=== PATIENT | female | born 1960 | race Caucasian/White ===

== ENCOUNTER 2018-09-11 16:35 | Observation (INO) | payer BC ==
--- NOTE | 2018-09-11 16:39 | Emergency Department Record ---
History of Present Illness - General Chief complaint: Nausea, Vomiting, Diarrhea Stated complaint: NAUSEA,VOMITING,DIZZY Time Seen by Provider: 09/11/18 16:38 Source: Patient, Family Mode of Arrival: Ambulatory Limitations: No limitations - History of Present Illness Initial comments: 57 yo female presents with nausea, vomiting, dizziness that started between 9:30pm and 10pm last night suddenly. She reports the onset was with standing up. The symptoms have been fairly persistent since then. The symptoms are better if still and worse with turning of the head. No headache. No vision changes or vision loss. No speech changes. No coordination changes of the extremities. She had a few episodes of diarrhea this morning. She does not have a PCP. She has not seen a PCP in 20+ years. She states she was told then she has HTN but she has never been treated. MD complaint: Diarrhea, Nausea, Vomiting -: Week(s) Description of Vomiting: Watery Description of Diarrhea: Water Location: Other (No pain) Quality: Other (spinning) Improves with: Other (remaining still) Worsens with: Movement, Vomiting Context: Other Associated Symptoms: Loss of appetite, Nausea/vomiting, Other (Diarrhea) - Related Data Home Medications Medication Instructions Recorded Confirmed Last Taken No Home Med [NO HOME MEDS] 09/11/18 09/11/18 Unknown Allergies Allergy/AdvReac Type Severity Reaction Status Date / Time Penicillins Allergy swelling Verified 09/11/18 16:36 Review of Systems Constitutional: Denies: Chills, Fever, Malaise, Weakness Eyes: Denies: Eye discharge, Eye pain, Photophobia, Vision change ENT: Denies: Congestion, Ear pain, Throat pain Respiratory: Denies: Cough, Dyspnea Cardiovascular: Denies: Chest pain, Dyspnea on exertion, Edema, Palpitations, Syncope Endocrine: Denies: Fatigue, Polydipsia, Polyuria Gastrointestinal: Reports: Diarrhea, Nausea, Vomiting. Denies: Abdominal pain, Constipation, Hematemesis, Hematochezia Genitourinary: Denies: Dysuria, Urgency Musculoskeletal: Denies: Arthralgia, Back pain, Myalgia Skin: Denies: Bruising, Change in color, Rash Neurological: Reports: Vertigo. Denies: Confusion, Headache, Numbness, Seizure, Tingling, Tremors, Weakness Psychiatric: Denies: Anxiety Hematological/Lymphatic: Denies: Easy bleeding, Easy bruising Past Medical History - SOCIAL HISTORY Smoking Status: Current every day smoker Alcohol Use: None Drug Use: None - RESPIRATORY Hx Respiratory Disorders: No - CARDIOVASCULAR Hx Cardio Disorders: No - NEURO Hx Neuro Disorders: No - GI Hx GI Disorders: No - Hx Genitourinary Disorders: No - ENDOCRINE Hx Endocrine Disorders: No - MUSCULOSKELETAL Hx Musculoskeletal Disorders: No - PSYCH Hx Psych Problems: No - HEMATOLOGY/ONCOLOGY Hx Hematology/Oncology Disorders: No Family Medical History Any Significant Family History?: Yes Family Hx Comment (NOT TO BE USED IN PLACE OF ITEMS BELOW): CHF- Mother Hx Diabetes: Brother/Sister, Grandparents Hx Heart Disease: Mother Physical Exam - General General Appearance: Alert, Oriented x3, Cooperative, No acute distress Limitations: No limitations - Head Head exam: Atraumatic, Normal inspection - Eye Eye exam: Normal appearance, PERRL, EOMI. negative: Conjunctival injection, Nystagmus, Periorbital swelling, Scleral icterus - ENT ENT exam: Normal exam, Mucous membranes moist Ear exam: Normal external inspection Nasal Exam: Normal inspection Mouth exam: Normal external inspection - Neck Neck exam: Normal inspection - Respiratory Respiratory exam: Normal lung sounds bilaterally. negative: Respiratory di stress - Cardiovascular Cardiovascular Exam: Regular rate, Normal rhythm, Normal heart sounds Peripheral Pulses: 2+: Radial (R), Radial (L) - GI/Abdominal GI/Abdominal exam: Soft. negative: Tenderness - Rectal Rectal exam: Deferred - exam: Deferred - Extremities Extremities exam: Normal inspection. negative: Tenderness - Back Back exam: Denies: CVA tenderness (R), CVA tenderness (L) - Neurological Neurological exam: Alert, CN II-XII intact, Oriented X3, Other (Normal FTN, no PND, clear speech, no dysarthia, no dysmetria, no ataxia, normal ANDREW). negative: Altered, Motor sensory deficit - Psychiatric Psychiatric exam: Normal affect, Normal mood. negative: Agitated, Anxious - Skin Skin exam: Dry, Intact, Normal color, Warm. negative: Cyanosis, Diaphoretic, Erythema, Mottled Course - Reevaluation(s) Reevaluation #1: EKG #1: 16:55 Rate: 58 Rhythm: sinus [place]: L Intervals: Normal ST segments: poor R wave progression Prior: None 09/11/18 17:06 09/11/18 17:07 The CBC was reviewed. No acute process. 09/11/18 17:26 No acute changes on the BMP 09/11/18 17:27 Repeat BP still > 200 Hydralazine ordered 09/11/18 17:39 The HCT was negative for acute process 09/11/18 17:39 Troponin is normal 09/11/18 18:51 Mild improvement but still room spinning if she turns her head No cerebellar symptoms on examination. Most consistent with vertigo, abrupt onset, fatigues if still, worse with turning, no other ataxia, coordination, speech, vision or other changes. Given she does not have a PCP, untreated HTN, and still symptoms I discussed the case with Valeria Galeano [employer] for admission, starting BP medication, neuro checks, symptomatic treatment. Medical Decision Making - Lab Data Result diagrams: 09/11/18 16:40 09/11/18 16:40 Disposition Disposition: Admit Clinical Impression: Dizziness, Vertigo, Vomiting and diarrhea Disposition: Still a Patient at [facility] Decision to Admit: Admit from ER Decision to Admit Date: 09/11/18 Decision to Admit Time: 18:54 Condition: (2) Stable Forms: Patient Portal Access Time of Disposition: 18:54 Quality - Quality Measures Quality Measures: N/A - Blood Pressure Screening Does Patient Have Any of the Following: Active Dx of HTN Blood Pressure Classification: Hypertensive Reading Systolic Measurement: 216 Diastolic Measurement: 116 Screening for High Blood Pressure: Patient Exclusion, Hx of HTN [[id number]]
[2018-09-11] MEDS ORDERED: MECLIZINE 25 MG TABLET PO ONE (16:48)
[2018-09-11] MEDS ORDERED: ONDANSETRON HCL IV 4 MG/2 ML VIAL IVP ONE ×2 (16:48→20:16)
[2018-09-11 16:59] LABS: ABSOLUTE NEUTROPHIL COUNT 6.58; BASO % 0.3 % (0-6); EOS % 0.3 % (0-6); GRAN % 70.6 % (47-80); HEMATOCRIT 51.5 % (35.0-47.0); HEMOGLOBIN 17.4 gm/dl (11.6-16.0); LYMPH % 22.8 % (16-45); MEAN CELL VOLUME 86.6 fl (81-97); MEAN CORPUSCULAR HEMOGLOBIN 29.2 pg (27-33); MEAN CORPUSCULAR HGB CONC 33.8 g/dl (32-36); PLATELET COUNT 276 K/uL (130-400); RED BLOOD COUNT 5.95 M/uL (3.80-5.40); RED CELL DISTRIBUTION WIDTH 14.2 % (11.5-14.5); WHITE BLOOD COUNT W/O DIFF 9.3 K/uL (4.2-12.2)
[2018-09-11 17:12] LABS: BLOOD UREA NITROGEN 13 mg/dL (6-20); CREATININE 0.8 mg/dL (0.5-0.9); EST GLOMERULAR FILTRATION RATE > 60 mL/min; LIPASE 11 U/L (13-60); TOTAL PROTEIN 8.1 g/dL (6.6-8.7)
[2018-09-11 17:14] LABS: GLUCOSE,RANDOM 118 mg/dL (74-109)
[2018-09-11 17:17] LABS: ALB/GLOB RATIO 1.5 (1.1-1.8); ALBUMIN 4.8 g/dL (4.0-5.0); ALKALINE PHOSPHATASE 86 U/L (35-104); ALT/SGPT 11 U/L (<33); AST/SGOT 13 U/L (10.0-35.0)
[2018-09-11] MEDS ORDERED: HYDRALAZINE 20MG/ML VIAL IV ONE (17:27)
[2018-09-11] MEDS ORDERED: LISINOPRIL 10 MG TABLET PO ONE (18:54)
[2018-09-11 19:23] LABS: URINE APPEARANCE CLEAR; URINE BILIRUBIN NEGATIVE (NEGATIVE); URINE BLOOD NEGATIVE (NEGATIVE); URINE COLOR YELLOW; URINE GLUCOSE (UA) NEGATIVE (NEGATIVE); URINE KETONE 15 mg/dL (NEGATIVE); URINE LEUKOCYTE ESTERASE TRACE (NEGATIVE); URINE NITRITE POSITIVE (NEGATIVE); URINE PROTEIN NEGATIVE (NEGATIVE); URINE UROBILINOGEN 0.2 E.U./dL (0.20 - 1.00)
[2018-09-11 19:31] LABS: URINE BACTERIA 4+; URINE EPITHELIAL CELLS 0 - 2 (FEW); URINE RBC NONE SEEN (NONE SEEN); URINE WBC 0 - 2 (0-2/hpf)
[2018-09-11] MEDS ORDERED: ACETAMINOPHEN 325 MG TAB PO PRN (20:16)
[2018-09-11] MEDS: 0.9 % SODIUM CHLORIDE 1000ML 1,000 ML IV PRN (20:29)
[2018-09-11] MEDS: HYDROXYZINE PAMOATE 25 MG CAPSULE PO SCH (21:54)
[2018-09-11] MEDS: NITROFURANTOIN MONO 100 MG CAPSULE PO SCH (21:54)
[2018-09-11] MEDS ORDERED: CALCIUM CARBONATE 500 MG TAB.CHEW PO PRN (22:26)
[2018-09-11] MEDS ORDERED: ONDANSETRON 4 MG ODT TABLET SL PRN (22:37)
[2018-09-12] MEDS: MECLIZINE 25 MG TABLET PO PRN ×3 (00:45→21:33)
[2018-09-12] MEDS: 0.9 % SODIUM CHLORIDE 1000ML 1,000 ML IV PRN (04:30)
[2018-09-12 06:20] LABS: ABSOLUTE NEUTROPHIL COUNT 4.83; BASO % 0.3 % (0-6); EOS % 1.1 % (0-6); GRAN % 60.3 % (47-80); HEMATOCRIT 44.3 % (35.0-47.0); HEMOGLOBIN 14.9 gm/dl (11.6-16.0); MEAN CELL VOLUME 88.4 fl (81-97); MEAN CORPUSCULAR HEMOGLOBIN 29.7 pg (27-33); MEAN CORPUSCULAR HGB CONC 33.6 g/dl (32-36); MEAN PLATELET VOLUME 10.6 fl (7.4-10.4); MONO % 10.3 % (0-9); PLATELET COUNT 207 K/uL (130-400); RED BLOOD COUNT 5.01 M/uL (3.80-5.40); RED CELL DISTRIBUTION WIDTH 14.1 % (11.5-14.5)
[2018-09-12 06:39] LABS: ALB/GLOB RATIO 1.5 (1.1-1.8); ALBUMIN 3.9 g/dL (4.0-5.0); ALKALINE PHOSPHATASE 67 U/L (35-104); ALT/SGPT 8 U/L (<33); AST/SGOT 10 U/L (10.0-35.0); BLOOD UREA NITROGEN 9 mg/dL (6-20); CREATININE 0.7 mg/dL (0.5-0.9); EST GLOMERULAR FILTRATION RATE > 60 mL/min; GLUCOSE,RANDOM 93 mg/dL (74-109); TOTAL PROTEIN 6.5 g/dL (6.6-8.7)
--- NOTE | 2018-09-12 07:26 | CT SCAN REPORT ---
EXAM: CT OF THE HEAD WITHOUT IV CONTRAST HISTORY: NAUSEA, VOMITING AND VERTIGO. TECHNIQUE: Helical CT scan of the head was obtained without intravenous contrast. Comparison: None. FINDINGS: No evidence of intracranial hemorrhage or major vessel infarction. No mass effect or midline shift. The ventricles are normal. The basal cisterns are patent. Welch white matter differentiation is maintained. The calvarium shows no abnormality. The paranasal sinuses and middle ear cavities are well aerated. IMPRESSION: NO ACUTE INTRACRANIAL ABNORMALITIES. JOB NUMBER: [id number] [facility]
[2018-09-12] MEDS ORDERED: LISINOPRIL 10 MG TABLET PO SCH (10:00)
[2018-09-12] MEDS: LISINOPRIL 20 MG TABLET PO SCH (10:01)
[2018-09-12] MEDS: NITROFURANTOIN MONO 100 MG CAPSULE PO SCH ×2 (10:01→21:33)
[2018-09-12] MEDS: NICOTINE 21 MG/24 HOUR PATCH TD SCH (10:03)
--- NOTE | 2018-09-12 10:48 | History & Physical ---
History of Present Illness - Date of Service Date of Service for History & Physical: 09/12/18 - History of Present Illness Admitting Diagnosis: vertigo, hypertension History of Present Illness: Mrs. Art is a 57 yo female who presented to the ED on 09/11/18 with nausea, vomiting, dizziness that started suddenly between 9:30pm and 10pm the prior night. She reported the onset was with standing up. The symptoms have been fairly persistent since then. The symptoms are better if still and worse with turning of the head to the right. No headache. No vision changes or vision loss. No speech changes. No coordination changes of the extremities. She had a few episodes of diarrhea this morning. She does not have a PCP. She has not seen a PCP in 20+ years. She states she was told then she has HTN but she has never been treated. History includes: every day smoker- 1ppd for 46 years. In the ED, her BP was elevated >200. EKG revealed NSR, rate 58, normal intervals. CBC and BMP unremarkable. Neg troponin. Head CT neg for acute pr ocess. Mild improvement after hydralazine, but still room spinning if she turns her head. No cerebellar symptoms on examination. Most consistent with vertigo, abrupt onset, fatigues if still, worse with turning, no other ataxia, coordination, speech, vision or other changes. She was admitted for observation for starting BP medication and BP management, neuro checks, and symptomatic treatment. 09/12/18: Pt. is resting in bed, she states that her symptoms have slightly improved since yesterday. Carotid dopplers were completed this am and report pending. UA completed in ED and pos for leuks, nitrates, +bacteria- macrobid 100mg started last night. Urine was sent for culture and pending. 10mg lisinopril started last evening, increased to 20mg today. Morning BP 193/94. Neuro checks wnl. 50mg vistaril administered last night (for poss vertigo secondary to labrynthitis/middle ear effusion). Pt. is interested in quitting smoking when she establishes care with PCP. Will continue to monitor. PCP: Dr. Cote (not formally established yet) Travel Screening - Travel/Exposure Within Last 30 Days Have you traveled within the last 30 days?: No - Travel/Exposure Within Last Year Have you traveled outside the [place] in the last year?: No - Additonal Travel Details Have you been exposed to anyone with a communicable illness?: No - Travel Symptoms Symptom Screening: None Review of Systems Constitutional: Denies: Chills, Fever, Malaise, Weakness Eyes: Denies: Eye discharge, Eye pain, Photophobia, Vision change ENT: Denies: Congestion, Ear pain, Throat pain Respiratory: Denies: Cough, Dyspnea Cardiovascular: Denies: Chest pain, Dyspnea on exertion, Edema, Palpitations, Syncope Endocrine: Denies: Fatigue, Polydipsia, Polyuria Gastrointestinal: Reports: Diarrhea, Nausea, Vomiting. Denies: Abdominal pain, Constipation, Hematemesis, Hematochezia Genitourinary: Denies: Dysuria, Urgency Musculoskeletal: Denies: Arthralgia, Back pain, Myalgia Skin: Denies: Bruising, Change in color, Rash Neurological: Reports: Vertigo. Denies: Confusion, Headache, Numbness, Seizure, Tingling, Tremors, Weakness Psychiatric: Denies: Anxiety Hematological/Lymphatic: Denies: Easy bleeding, Easy bruising Past Medical History - SOCIAL HISTORY Smoking Status: Current every day smoker Alcohol Use: Occasional Alcohol Use Comment: 4-5 cans 3-4x week-per patient Drug Use: Occasional Drug Use Detail:: Marijuana - RESPIRATORY Hx Respiratory Disorders: No - CARDIOVASCULAR Hx Cardio Disorders: No Comment:: periodic checks of blood pressure have been high-per patient - NEURO Hx Neuro Disorders: No - GI Hx GI Disorders: No - Hx Genitourinary Disorders: No Hx UTI: Yes (remote hx of UTI) - ENDOCRINE Hx Endocrine Disorders: No - MUSCULOSKELETAL Hx Musculoskeletal Disorders: No - PSYCH Hx Psych Problems: Yes Hx Anxiety: Yes - HEMATOLOGY/ONCOLOGY Hx Hematology/Oncology Disorders: No Family Medical History Any Significant Family History?: Yes Family Hx Comment (NOT TO BE USED IN PLACE OF ITEMS BELOW): CHF- Mother Hx Diabetes: Brother/Sister, Grandparents Hx Heart Disease: Mother H&P Meds/Allergies - Allergies Allergies: Allergies Allergy/AdvReac Type Severity Reaction Status Date / Time Penicillins Allergy swelling Verified 09/11/18 16:36 - Home Medications Home Medications Medication Instructions Recorded Confirmed Last Taken No Home Med [NO HOME MEDS] 09/11/18 09/11/18 Unknown - Active Medications Active Medications: Current Medications Acetaminophen (Tylenol 325mg) 650 mg PO Q6H PRN PRN Reason: PAIN - MILD(1-4)/FEVER Calcium Carbonate/Glycine (Tums) 500 mg PO Q4H PRN PRN Reason: HEARTBURN Last Admin: 09/11/18 22:31 Dose: 500 mg Documented by: Hydroxyzine Pamoate (Vistaril) 50 mg PO QHS [facility] Last Admin: 09/11/18 21:54 Dose: 50 mg Documented by: Sodium Chloride () 1,000 mls @ 125 mls/hr IV .Q8H PRN PRN Reason: LARGE VOLUME IV Last Admin: 09/12/18 04:30 Dose: 125 mls/hr Documented by: Lisinopril (Zestril) 20 mg PO DAILY [facility] Last Admin: 09/12/18 10:01 Dose: 20 mg Documented by: Meclizine HCl (Antivert) 25 mg PO Q8H PRN PRN Reason: DIZZINESS Last Admin: 09/12/18 08:47 Dose: 25 mg Documented by: Nicotine (Nicotine 21mg) 1 patch TD DAILY [facility] Last Admin: 09/12/18 10:03 Dose: 1 patch Documented by: Nitrofurantoin Macrocrystals (Macrobid) 100 mg PO BID [facility] Stop: 09/18/18 22:01 Last Admin: 09/12/18 10:01 Dose: 100 mg Documented by: Ondansetron HCl (Zofran Odt) 4 mg SL TID PRN PRN Reason: NAUSEA/VOMITING Physical Exam - Vital Signs Vital Signs: Vital Signs - Last 24 Hrs Temp Pulse Pulse Resp BP BP BP 09/12/18 07:40 97.7 F 50 L 14 193/94 09/12/18 06:30 97.5 F L 51 L 16 172/83 09/12/18 04:40 97.7 F 57 L 16 182/84 09/12/18 00:40 97.5 F L 59 L 16 190/96 09/11/18 22:10 63 16 211/96 09/11/18 20:20 97.3 F L 76 18 214/118 09/11/18 19:08 68 18 195/101 09/11/18 18:32 63 18 188/111 09/11/18 18:09 66 18 191/117 09/11/18 17:22 57 L 18 202/109 09/11/18 16:38 97.7 F 70 20 216/116 Pulse Ox 09/12/18 07:40 96 09/12/18 06:30 94 L 09/12/18 04:40 94 L 09/12/18 00:40 95 09/11/18 22:10 09/11/18 20:20 96 09/11/18 19:08 95 09/11/18 18:32 96 09/11/18 18:09 96 09/11/18 17:22 96 09/11/18 16:38 96 - General General Appearance: Alert, Oriented x3, Cooperative, No acute distress Limitations: No limitations - Head Head exam: Atraumatic, Normal inspection - Eye Eye exam: Normal appearance, PERRL, EOMI. negative: Conjunctival injection, Nystagmus, Periorbital swelling, Scleral icterus - ENT ENT exam: Normal exam, Mucous membranes moist Ear exam: Normal external inspection Nasal Exam: Normal inspection Mouth exam: Normal external inspection - Neck Neck exam: Normal inspection - Respiratory Respiratory exam: Normal lung sounds bilaterally, Other (wheezing with expiration). negative: Respiratory distress - Cardiovascular Cardiovascular Exam: Regular rate, Normal rhythm, Normal heart sounds Peripheral Pulses: 2+: Radial (R), Radial (L) - GI/Abdominal GI/Abdominal exam: Soft. negative: Tenderness - Rectal Rectal exam: Deferred - exam: Deferred - Extremities Extremities exam: Normal inspection. negative: Tenderness - Back Back exam: Denies: CVA tenderness (R), CVA tenderness (L) - Neurological Neurological exam: Alert, CN II-XII intact, Oriented X3, Other (Normal FTN, no PND, clear speech, no dysarthia, no dysmetria, no ataxia, normal ANDREW). nega tive: Altered, Motor sensory deficit - Psychiatric Psychiatric exam: Normal affect, Normal mood. negative: Agitated, Anxious - Skin Skin exam: Dry, Intact, Normal color, Warm. negative: Cyanosis, Diaphoretic, Erythema, Mottled Results - Labs Result Diagrams: 09/12/18 06:07 09/12/18 06:07 Labs Last 24 Hours: Laboratory Results - last 24 hr 09/11/18 09/11/18 09/11/18 16:40 16:40 16:40 WBC 9.3 RBC 5.95 H Hgb 17.4 H Hct 51.5 H MCV 86.6 MCH 29.2 MCHC 33.8 RDW 14.2 Plt Count 276 MPV 11.0 H Gran % 70.6 Lymphocytes % 22.8 Monocytes % 6.0 Eosinophils % 0.3 Basophils % 0.3 Absolute Neutrophils 6.58 Sodium 142 Potassium 4.1 Chloride 104 Carbon Dioxide 24.0 Anion Gap 14.0 BUN 13 Creatinine 0.8 Estimated GFR > 60 Random Glucose 118 H Calcium 10.7 H Total Bilirubin 0.40 AST 13 ALT 11 Alkaline Phosphatase 86 Troponin T < 0.010 Total Protein 8.1 Albumin 4.8 Globulin 3.3 Albumin/Globulin Ratio 1.5 Lipase 11 L Urine Color Urine Appearance Urine pH Ur Specific [place] Urine Protein Urine Glucose (UA) Urine Ketones Urine Blood Urine Nitrite Urine Bilirubin Urine Urobilinogen Ur Leukocyte Esterase Urine RBC Urine WBC Ur Epithelial Cells Urine Bacteria 09/11/18 09/12/18 09/12/18 Unknown 06:07 06:07 WBC 8.0 RBC 5.01 Hgb 14.9 Hct 44.3 MCV 88.4 MCH 29.7 MCHC 33.6 RDW 14.1 Plt Count 207 MPV 10.6 H Gran % 60.3 Lymphocytes % 28.0 Monocytes % 10.3 H Eosinophils % 1.1 Basophils % 0.3 Absolute Neutrophils 4.83 Sodium 143 Potassium 3.6 Chloride 108 H Carbon Dioxide 26.0 Anion Gap 9.0 BUN 9 Creatinine 0.7 Estimated GFR > 60 Random Glucose 93 Calcium 9.7 Total Bilirubin 0.40 AST 10 ALT 8 Alkaline Phosphatase 67 Troponin T Total Protein 6.5 L Albumin 3.9 L Globulin 2.6 Albumin/Globulin Ratio 1.5 Lipase Urine Color Yellow Urine Appearance Clear Urine pH 7.5 Ur Specific Oden <= 1.005 Urine Protein Negative Urine Glucose (UA) Negative Urine Ketones 15 mg/dl H Urine Blood Negative Urine Nitrite Positive H Urine Bilirubin Negative Urine Urobilinogen 0.2 Ur Leukocyte Esterase Trace H Urine RBC None seen Urine WBC 0 - 2 Ur Epithelial Cells 0 - 2 Urine Bacteria 4+ - Imaging and Cardiology CT scan - head Status: Report reviewed (neg for acute process) VTE H&P Assessment - Risk for VTE Risk for VTE: Yes Risk Level: Low Risk Assessment Date: 09/12/18 Risk Assessment Time: 10:51 VTE Orders Placed or Will Be Placed: Yes Plan - Detailed Diagnosis and Plan (1) Hypertension Current Visit: Yes Status: Acute Base Code: I10 - ESSENTIAL (PRIMARY) HYPERTENSION Comment: 09/12/18: -BP elevated in ED, per pt- hx of HTN untreated -Lisinopril 20mg daily -Will order CXR to eval for cardiomegaly for longstanding HTN (2) UTI (urinary tract infection) Current Visit: Yes Status: Acute Base Code: N39.0 - URINARY TRACT INFECTION, SITE NOT SPECIFIED Comment: 09/12/18: -UA in ED pos for leuks, nitrates, and +4 bacteria, sent for culture -Macrobid 100mg bid (3) Vertigo Current Visit: Yes Status: Acute Base Code: R42 - DIZZINESS AND GIDDINESS Comment: 09/12/18: -Neg head CT, neg neuro checks, carotid dopplers pending -Dizziness worse with turning head to right -Poss labyrinthitis -Continue antivert 25mg tid, vistaril 50mg qhs (4) Current every day smoker Current Visit: Yes Status: Acute Base Code: F17.200 - NICOTINE DEPENDENCE, UNSPECIFIED, UNCOMPLICATED Comment: 09/12/18: -1ppd smoker -21mg nicotine patch ordered (5) At risk for deep venous thrombosis Current Visit: Yes Status: Acute Base Code: Z91.89 - OTH PERSONAL RISK FACTORS, NOT ELSEWHERE CLASSIFIED Comment: 09/12/18: -Lovenox 40mg SC qhs for prophylaxis (6) Full code status Current Visit: Yes Status: Acute Base Code: Z78.9 - OTHER SPECIFIED HEALTH STATUS Comment: 09/12/18: -Pt. is a full code
--- NOTE | 2018-09-12 12:40 | US CAROTID DOPPLER REPORT ---
EXAM: BILATERAL CAROTID DOPPLER ULTRASOUND HISTORY: VERTIGO, NAUSEA. TECHNIQUE: Bilateral carotid Doppler ultrasound was obtained. Comparison: None. FINDINGS: Vessel Right Peak Systolic/ End Diastolic Velocities Left Peak Systolic/ End Diastolic Velocities Proximal Common Carotid Artery 69 cm/s /13 cm/s 72 cm/s /13 cm/s Mid Common Carotid Artery 50 cm/s /11 cm/s 50 cm/s /14 cm/s Distal Common Carotid Artery 40 cm/s /9 cm/s 43 cm/s /14 cm/s Proximal Internal Carotid Artery 65 cm/s /21 cm/s 54 cm/s /21 cm/s Mid Internal Carotid Artery 49 cm/s /21 cm/s 61 cm/s /22 cm/s Distal Internal Carotid Artery 63 cm/s /22 cm/s 61 cm/s /26 cm/s Carotid Bulb 39 cm/s /10 cm/s 35 cm/s /10 cm/s Proximal External Carotid Artery 53 cm/s /8 cm/s 57 cm/s /7 cm/s Right Flow Left Flow Vertebral Artery PSV 40 cm/s/Antegrade 49 cm/s/Antegrade The right ICA/CCA ratio is 1.3. The left ICA/CCA ratio is 1.2. Minimal noncalcified plaque near the carotid bifurcations bilaterally. IMPRESSION: 1. MINIMAL BILATERAL CAROTID ATHEROSCLEROSIS WITH LESS THAN 50% STENOSIS BILATERALLY. 2. ANTEGRADE FLOW IN BOTH VERTEBRAL ARTERIES. JOB NUMBER: [id number] [facility]
[2018-09-12] MEDS: HYDROXYZINE PAMOATE 25 MG CAPSULE PO SCH (21:33)
[2018-09-12] MEDS ORDERED: ENOXAPARIN 40 MG/0.4 ML SYR SQ SCH (22:00)
[2018-09-13] MEDS: MECLIZINE 25 MG TABLET PO PRN ×2 (08:49→16:11)
[2018-09-13] MEDS: NITROFURANTOIN MONO 100 MG CAPSULE PO SCH ×2 (08:50→09:26)
[2018-09-13] MEDS: HYDROCHLOROTHIAZIDE 12.5 MG CAPSULE PO SCH ×2 (08:50→09:26)
[2018-09-13] MEDS: NICOTINE 21 MG/24 HOUR PATCH TD SCH ×2 (08:51→09:26)
[2018-09-13] MEDS: LISINOPRIL 20 MG TABLET PO SCH ×2 (08:51→09:27)
[2018-09-13] MEDS ORDERED: AMLODIPINE BESYLATE 5MG TAB PO SCH (10:15)
--- NOTE | 2018-09-13 14:09 | Discharge Summary ---
Providers Discharge Summary Date: 09/13/18 Date of admission: 09/11/18 20:02 Expected Date of Discharge: 09/13/18 Attending physician: HEBERT COTE Primary care physician: [facility] Family Practice Physical Exam - Vital Signs Vital Signs: Vital Signs - Last 24 Hrs Temp Pulse Resp BP BP Pulse Ox 09/13/18 11:45 58 L 16 179/96 94 L 09/13/18 10:00 97.5 F L 70 17 186/105 94 L 09/13/18 08:32 20 09/13/18 08:00 186/101 09/13/18 07:30 98.2 F 64 17 194/104 196/105 94 L 09/13/18 04:00 97.7 F 55 L 16 174/87 94 L 09/13/18 00:00 97.7 F 55 L 16 167/87 94 L 09/12/18 20:00 98.4 F 66 16 165/83 94 L 09/12/18 17:00 98.0 F 69 16 184/88 96 - General General Appearance: Alert, Oriented x3, Cooperative, No acute distress Limitations: No limitations - Head Head exam: Atraumatic, Normal inspection - Eye Eye exam: Normal appearance, PERRL, EOMI. negative: Conjunctival injection, Nystagmus, Periorbital swelling, Scleral icterus - ENT ENT exam: Normal exam, Mucous membranes moist Ear exam: Normal external inspection Nasal Exam: Normal inspection Mouth exam: Normal external inspection - Neck Neck exam: Normal inspection - Respiratory Respiratory exam: Normal lung sounds bilaterally, Other (wheezing with expiration). negative: Respiratory distress - Cardiovascular Cardiovascular Exam: Regular rate, Normal rhythm, Normal heart sounds Peripheral Pulses: 2+: Radial (R), Radial (L) - GI/Abdominal GI/Abdominal exam: Soft. negative: Tenderness - Rectal Rectal exam: Deferred - exam: Deferred - Extremities Extremities exam: Normal inspection. negative: Tenderness - Back Back exam: Denies: CVA tenderness (R), CVA tenderness (L) - Neurological Neurological exam: Alert, CN II-XII intact, Oriented X3, Other (Normal FTN, no PND, clear speech, no dysarthia, no dysmetria, no ataxia, normal ANDREW). negative: Altered, Motor sensory deficit - Psychiatric Psychiatric exam: Normal affect, Normal mood. negative: Agitated, Anxious - Skin Skin exam: Dry, Intact, Normal color, Warm. negative: Cyanosis, Diaphoretic, Erythema, Mottled Hospitalization - Hospitalization Admission Diagnosis: vertigo, hypertension - Problem List/Discharge Diagnosis (1) Hypertension Current Visit: Yes Status: Acute Base Code: I10 - ESSENTIAL (PRIMARY) HYPERTENSION Comment: 09/13/18: -BP elevated in ED, per pt- hx of HTN untreated -Lisinopril 20mg daily, added 12.5 hctz and 5mg norvasc this am -CXR neg for cardiomegaly (2) UTI (urinary tract infection) Current Visit: Yes Status: Acute Base Code: N39.0 - URINARY TRACT INFECTION, SITE NOT SPECIFIED Comment: 09/13/18: -UA in ED pos for leuks, nitrates, and +4 bacteria, sent for culture -Macrobid 100mg bid (3) Vertigo Current Visit: Yes Status: Acute Base Code: R42 - DIZZINESS AND GIDDINESS Comment: 09/13/18: -Neg head CT, neg neuro checks, carotid dopplers pending -Dizziness worse with turning head to right -Poss labyrinthitis -Continue antivert 25mg tid, vistaril 50mg qhs (4) Current every day smoker Current Visit: Yes Status: Acute Base Code: F17.200 - NICOTINE DEPENDENCE, UNSPECIFIED, UNCOMPLICATED Comment: 09/13/18: -1ppd smoker -21mg nicotine patch ordered (5) At risk for deep venous thrombosis Current Visit: Yes Status: Acute Base Code: Z91.89 - OTH PERSONAL RISK FACTORS, NOT ELSEWHERE CLASSIFIED Comment: 09/13/18: -Lovenox 40mg SC qhs for prophylaxis (6) Full code status Current Visit: Yes Status: Acute Base Code: Z78.9 - OTHER SPECIFIED HEALTH STATUS Comment: 09/13/18: -Pt. is a full code - Hospitalization Course Disposition: Home, Self-Care Hospital Course: Mrs. Art is a 57 yo female who presented to the ED on 09/11/18 with nausea, vomiting, dizziness that started suddenly between 9:30pm and 10pm the prior night. She reported the onset was with standing up. The symptoms have been fairly persistent since then. The symptoms are better if still and worse with turning of the head to the right. No headache. No vision changes or vision loss. No speech changes. No coordination changes of the extremities. She had a few episodes of diarrhea this morning. She does not have a PCP. She has not seen a PCP in 20+ years. She states she was told then she has HTN but she has never been treated. History includes: every day smoker- 1ppd for 46 years. In the ED, her BP was elevated >200. EKG revealed NSR, rate 58, normal inte rvals. CBC and BMP unremarkable. Neg troponin. Head CT neg for acute process. Mild improvement after hydralazine, but still room spinning if she turns her head. No cerebellar symptoms on examination. Most consistent with vertigo, abrupt onset, fatigues if still, worse with turning, no other ataxia, coordination, speech, vision or other changes. She was admitted for observation for starting BP medication and BP management, neuro checks, and symptomatic treatment. 09/12/18: Pt. is resting in bed, she states that her symptoms have slightly improved since yesterday. Carotid dopplers were completed this am and report pending. UA completed in ED and pos for leuks, nitrates, +bacteria- macrobid 100mg started last night. Urine was sent for culture and pending. 10mg lisinopril started last evening, increased to 20mg today. Morning BP 193/94. Neuro checks wnl. 50mg vistaril administered last night (for poss vertigo secondary to labrynthitis/middle ear effusion). Pt. is interested in quitting smoking when she establishes care with PCP. Will continue to monitor. 09/13/18 Some improvement in BP (160s/80s), added 12.5 hctz and 5mg norvasc. Pt. scheduled for f/u on 09/19, will d/c home today. PCP: Dr. Cote (not formally established yet) Procedures: Imaging and X-Rays 09/11/18 16:48 HEAD WO CONTRAST [CT] Stat 09/12/18 07:00 ARTERIAL DOPPLER CAROTID RACHEL [US] Stat 09/12/18 10:57 CHEST 2 VIEWS [RAD] Stat Cardiology Procedures 09/11/18 16:48 EKG NOW 09/11/18 20:16 Flatbed Driver NOW Abnormal Labs: Abnormal Lab Results 09/11/18 09/11/18 09/11/18 Range/Units 16:40 16:40 Unknown RBC 5.95 H (3.80-5.40) M/uL Hgb 17.4 H (11.6-16.0) gm/dl Hct 51.5 H (35.0-47.0) % MPV 11.0 H (7.4-10.4) fl Monocytes % (0-9) % Chloride (98-107) mmol/L Random Glucose 118 H (74-109) mg/dL Calcium 10.7 H (8.6-10.0) mg/dL Total Protein (6.6-8.7) g/dL Albumin (4.0-5.0) g/dL Lipase 11 L (13-60) U/L Urine Ketones 15 mg/dl H (NEGATIVE) Urine Nitrite Positive H (NEGATIVE) Ur Leukocyte Esterase Trace H (NEGATIVE) 09/12/18 09/12/18 Range/Units 06:07 06:07 RBC (3.80-5.40) M/uL Hgb (11.6-16.0) gm/dl Hct (35.0-47.0) % MPV 10.6 H (7.4-10.4) fl Monocytes % 10.3 H (0-9) % Chloride 108 H (98-107) mmol/L Random Glucose (74-109) mg/dL Calcium (8.6-10.0) mg/dL Total Protein 6.5 L (6.6-8.7) g/dL Albumin 3.9 L (4.0-5.0) g/dL Lipase (13-60) U/L Urine Ketones (NEGATIVE) Urine Nitrite (NEGATIVE) Ur Leukocyte Esterase (NEGATIVE) Condition at Discharge: (2) Stable Discharge Diagnosis: HTN, Vertigo VTE Discharge VTE Reason For No Overlap Therapy: Not Indicated Discharge Medications - Discharge Medications Prescriptions: Hydroxyzine Pamoate [Vistaril] 50 mg PO QHS #14 capsule Meclizine HCl [Antivert] 25 mg PO Q8H PRN #21 tablet PRN Reason: Dizziness Lisinopril/Hydrochlorothiazide [Lisinopril-Hctz 20-12.5 mg Tab] 1 each PO DAILY #30 tablet Nitrofurantoin [place] [Macrobid] 100 mg PO BID 6 Days #12 capsule Amlodipine Besylate [Norvasc] 5 mg PO DAILY #30 tab Ondansetron [Zofran Odt] 4 mg SL TID PRN #21 tab.rapdis PRN Reason: Nausea/Vomiting Home Medications: Ambulatory Orders Amlodipine Besylate [Norvasc] 5 mg PO DAILY #30 tab 09/13/18 [Last Taken Unknown] Hydroxyzine Pamoate [Vistaril] 50 mg PO QHS #14 capsule 09/13/18 [Last Taken Unknown] Lisinopril/Hydrochlorothiazide [Lisinopril-Hctz 20-12.5 mg Tab] 1 each PO DAILY #30 tablet 09/13/18 [Last Taken Unknown] Meclizine HCl [Antivert] 25 mg PO Q8H PRN #21 tablet 09/13/18 [Last Taken Unknown] Nitrofurantoin [place] [Macrobid] 100 mg PO BID 6 Days #12 capsule 09/13/18 [Last Taken Unknown] Ondansetron [Zofran Odt] 4 mg SL TID PRN #21 tab.rapdis 09/13/18 [Last Taken Unknown] Discharge Plan - Discharge Instructions Activity at Discharge: Increase Activity as Tolerated Diet at Discharge: Regular Diet Additional Instructions: Appointment with Valeria on September 19 at 1:20PM. Please bring new patient paperwork to appointment. Enter through Door C. Return to the ED if symptoms worsen- signs of increasing blood pressure: headache, vision change, weakness, chest pain Quality Measures - Quality Measures Quality Measures: Documentation of Current Medications in Medical Record, Screening for High Blood Pressure and F/U Documented - Current Medications Quality Measure: Measure #130: Documentation of Current Medications Documentation of Current Medications: <Current Medications Documented/Reviewed> [G8427] - Blood Pressure Screening Quality Measure: Screening for High Blood Pressure and Follow-Up Documented Does Patient Have Any of the Following: Active Dx of HTN Blood Pressure Classification: Hypertensive Reading Systolic Measurement: 216 Diastolic Measurement: 116 Screening for High Blood Pressure: Patient Exclusion, Hx of HTN [G9744] - Elder Abuse Suspicion Index EASI Reference Information: Wayne GARNER, Janice Roy, Naye D, Berna Awad.Development and validation of a tool to assist physicians identification of elder abuse: The Elder Abuse Suspicion Index (EASI ). Journal of Elder Abuse and Neglect, 2008; 20 (3): 276-300.
--- NOTE | 2018-09-15 09:04 | RADIOLOGY REPORT ---
EXAM: CHEST, TWO VIEWS HISTORY: SEVERE VERTIGO. TECHNIQUE: Two views of the chest were obtained. Comparison: None. FINDINGS: The cardiac silhouette is within normal size limits. The thoracic aorta is calcified and minimally tortuous. Linear opacities at the lung bases likely represent atelectasis or scar. No focal pulmonary consolidation. No pleural effusion or pneumothorax. The lungs appear hyperinflated. IMPRESSION: 1. NO ACUTE LUNG FINDINGS. 2. LIKELY MINIMAL ATELECTASIS OR SCARRING IN THE LUNG BASES. 3. PULMONARY HYPERINFLATION, SUGGESTING COPD. J[facility] NUMBER: [id number] [facility]
== END 2018-09-13 16:32 | disposition home or self-care (01) ==
LOC: ER 16:35 → MEDSURG 20:02
PROVIDERS: ADMIT Internal Medicine; ATTEND Internal Medicine
DX: R42 Dizziness and giddiness (principal); I10 Essential (primary) hypertension; N39.0 Urinary tract infection, site not specified; F17.210 Nicotine dependence, cigarettes, uncomplicated
CPT/HCPCS: 99285 ×2; 96374; 96375; 83690; 85025 ×2; 80053 ×2; 81001; 84484; 71046; 93880; 70450; 93005; 93010; G0378 ×3; J2405; J3490; 99217; 99220; J1650